=== PATIENT | female | born 1935 | race Caucasian/White ===

== ENCOUNTER 2016-06-02 08:43 | Inpatient (IN) | payer MEDICARE, OTHER ==
[~2016-06-02] VITALS: Ht 162.6 cm; Wt 42.3 kg
[2016-06-02] VITALS (315 sets, daily range): BP systolic 130–184; BP diastolic 59–97; PULSE 70–78; TEMP 98–99.2; O2SAT 74–100
[~2016-06-02 08:43] MED LIST: ASPI325T6 PO; AYR SALINE GEL1 NS; COLACE 100100 MG/CAP PO; DULCOLAX S10 MG/SUPP RC; FERROUS SU325 MG/TAB PO; NORCO 325 MG-51 TAB PO; NORCO 325 MG-7.1 TAB PO; NORVASC 10MG10 MG PO; Patient's Own Medica PO; TYLENOL 325MG325 MG PO
[2016-06-02] MEDS ORDERED: PRINIVIL10 MG PO (09:07)
[2016-06-02] MEDS ORDERED: FOR HTN (09:08)
[2016-06-02] MEDS ORDERED: LASIX 20MG TABL20 MG PO (09:08)
[2016-06-02 09:46] LABS: BASO % 0.3 % (0.0-2.0); EOS % 0.4 % (0-4.0); GRAN % 86.7 % (42.2-75.2); LYMPH # 0.8 (1.2-3.4); LYMPH % 7.3 % (20.0-51.0); MEAN CELL VOLUME 90 fl (80.0-100.0); MEAN CORPUSCULAR HGB CONC 33 g/dl (33.0-37.0); MEAN PLATELET VOLUME 8.9 fl (7.4-10.4); MONO # 0.5 (0.1-0.6); MONO % 4.6 % (1.7-9.3); PLATELET COUNT 317 K/mm3 (130-400); WHITE BLOOD COUNT 10.3 K/mm3 (4.8-10.8)
[2016-06-02 09:50] LABS: PROTHROMBIN TIME 11.2 SECONDS (9.7-12.8)
[2016-06-02 09:51] LABS: MEAN CORPUSCULAR HEMOGLOBIN 30 pg (27.0-31.0)
[2016-06-02 09:53] LABS: PARTIAL THROMBOPLASTIN TIME 26.9 SECONDS (26.0-37.0)
[2016-06-02 09:56] LABS: ADJUSTED CALCIUM 9.6 mg/dL (8.4-10.2); BILIRUBIN,TOTAL 0.4 mg/dL (0.0-1.0); CALCIUM 8.8 mg/dL (8.4-10.2); CREATININE, serum 1.04 mg/dL (0.52-1.25); POTASSIUM 3.5 mmol/L (3.4-5.0); TOTAL PROTEIN 6.8 gm/dL (6.4-8.2)
[2016-06-02] MEDS ORDERED: NORVASC 5MG5 MG/TAB PO (14:07)
[2016-06-02] MEDS ORDERED: COLACE 100100 MG/CAP PO (14:08)
[2016-06-02] MEDS ORDERED: FERROUS SU325 MG/TAB PO (14:08)
[2016-06-02] MEDS ORDERED: HCTZ 25MG TAB25 MG PO (14:09)
[2016-06-02] MEDS ORDERED: ZESTRIL 20MG TA20 MG PO (14:09)
[2016-06-02] MEDS ORDERED: NORMAL SALINE FL3 ML (14:11)
[2016-06-02] MEDS ORDERED: ASPIRIN 32325 MG/TAB PO (14:12)
[2016-06-02 23:32] LABS: HEMATOCRIT 23.6 % (37.0-47.0); HEMOGLOBIN 8.1 g/dl (12.5-16.0)
[2016-06-03] VITALS (196 sets, daily range): BP systolic 130–188; BP diastolic 59–93; PULSE 64–77; TEMP 98–98.3; O2SAT 36–100
[2016-06-03 10:04] LABS: CALCIUM 8.7 mg/dL (8.4-10.2); CREATININE, serum 0.76 mg/dL (0.52-1.25); POTASSIUM 3.3 mmol/L (3.4-5.0)
[2016-06-03 17:06] LABS: HEMOGLOBIN 10.5 g/dl (12.5-16.0)
[2016-06-04 02:08] VITALS: BP 150/67; PULSE 69; TEMP 98.2
[2016-06-04 05:35] VITALS: BP 152/66; PULSE 69; TEMP 99.1
[2016-06-04 07:00] LABS: HEMATOCRIT 25.6 % (37.0-47.0); HEMOGLOBIN 8.6 g/dl (12.5-16.0)
[2016-06-04 07:08] LABS: CALCIUM 8.6 mg/dL (8.4-10.2); CREATININE, serum 0.88 mg/dL (0.52-1.25)
[2016-06-04 09:20] VITALS: BP 126/71; PULSE 97; TEMP 98.2
== END 2016-06-04 14:02 | disposition home or self-care (01) | DRG 378 ==
LOC: COL.ER 08:43 → IMCU 09:58 → SURG 09:58 → ICU 09:58 → IMCU 14:35 → SURG 06-03 14:50
PROVIDERS: Emergency Medicine; Family Medicine; Internal Medicine Gastroenterology; Nurse Practitioner Family
PROC: 0DJD8ZZ Inspection of Lower Intestinal Tract, Via Natural or Artificial Opening Endoscopic (ICD-10-PCS; principal; 2016-06-03 07:00)
PROC: 0DJ08ZZ Inspection of Upper Intestinal Tract, Via Natural or Artificial Opening Endoscopic (ICD-10-PCS; 2016-06-03 07:00)
DX: K57.31 Diverticulosis of large intestine without perforation or abscess with bleeding (principal); D62 Acute posthemorrhagic anemia; I10 Essential (primary) hypertension; D50.0 Iron deficiency anemia secondary to blood loss (chronic); K31.7 Polyp of stomach and duodenum; K44.9 Diaphragmatic hernia without obstruction or gangrene
CPT/HCPCS: 99223-AI; 99232-AI; 99239; C9113; J0290; J1580; J2250; J3010; J7030; J7040; J7050; P9016

== ENCOUNTER 2017-01-19 11:25 | Emergency (ER) | payer MEDICARE, OTHER ==
[~2017-01-19] VITALS: Ht 162.6 cm; Wt 49.9 kg
[~2017-01-19 11:25] MED LIST changes: +ASPIRIN 32325 MG/TAB PO; +FOR HTN; +HCTZ 25MG TAB25 MG PO; +LASIX 20MG TABL20 MG PO; +NORMAL SALINE FL3 ML; +NORVASC 5MG5 MG/TAB PO; +PRINIVIL10 MG PO; +ZESTRIL 20MG TA20 MG PO
[2017-01-19 11:34] VITALS: TEMP 97.9
[2017-01-19 16:21] VITALS: BP 143/88; PULSE 72
== END 2017-01-19 16:40 | disposition home or self-care (01) ==
LOC: COL.ER 11:25
DX: S09.90XA Unspecified injury of head, initial encounter (principal); S52.501A Unspecified fracture of the lower end of right radius, initial encounter for closed fracture; S80.02XA Contusion of left knee, initial encounter; I10 Essential (primary) hypertension; W01.0XXA Fall on same level from slipping, tripping and stumbling without subsequent striking against object, initial encounter; Y92.009 Unspecified place in unspecified non-institutional (private) residence as the place of occurrence of the external cause
CPT/HCPCS: L1830

== ENCOUNTER 2021-05-15 20:16 | Emergency (ER) | payer MEDICARE, OTHER ==
[~2021-05-15] VITALS: Ht 162.6 cm; Wt 38.6 kg
[2021-05-15 20:30] VITALS: TEMP 97.8
[2021-05-16 02:22] VITALS: BP 145/79; PULSE 78
== END 2021-05-16 02:25 | disposition home or self-care (01) ==
LOC: COL.ER 20:16
DX: M54.50 Low back pain, unspecified (principal)